=== PATIENT | female | born 1965 | race Caucasian/White ===

== ENCOUNTER 2016-07-10 22:19 | Emergency (ER) | payer MEDICAID ==
[~2016-07-10] VITALS: Ht 177.8 cm; Wt 56.0 kg
[~2016-07-10 22:19] MED LIST: AMIT1TAB79 PO; CELE40TA PO; CLON1 PO; DICY10CA12 PO; GEOD80CA PO; PROT40TA PO; ROBA750T PO
[2016-07-10 22:35] VITALS: BP 112/64; PULSE 67; RESP 18; TEMP 98.1; O2SAT 95
[2016-07-10] MEDS ORDERED: BUTA1CAP PO (22:45)
[2016-07-10] MEDS ORDERED: SODIUM CHLORIDE 0.9% FLUSH 10 ML FLUSH IVF PRN (22:45)
[2016-07-10] MEDS ORDERED: IBUP-232 PO (22:45)
[2016-07-10 23:03] LABS: AUTOMATED NEUTROPHIL # 2.9 TH/MM3 (1.8-7.7); BASOPHIL # 0.1 TH/MM3 (0-0.2); BASOPHIL % 1.1 % (0.0-2.0); EOSINOPHIL # 0.1 TH/MM3 (0-0.4); EOSINOPHIL % 1.2 % (0.0-4.0); HEMATOCRIT 34.1 % (35.0-46.0); HEMO FLAGS DIFF FINAL; LYMPHOCYTE # 2.6 TH/MM3 (1.0-4.8); MEAN CELL VOLUME 89.5 FL (80.0-100.0); MEAN CORPUSCULAR HEMOGLOBIN 30.7 PG (27.0-34.0); MEAN CORPUSCULAR HGB CONC 34.3 % (32.0-36.0); MONO % 11.7 % (0.0-8.0); PLATELET COUNT 249 TH/MM3 (150-450); RED BLOOD COUNT 3.81 MIL/MM3 (4.00-5.30); RED CELL DISTRIBUTION WIDTH 13.4 % (11.6-17.2); WHITE BLOOD COUNT 6.4 TH/MM3 (4.0-11.0)
[2016-07-10 23:37] LABS: ANION GAP 7 MEQ/L (5-15); AST (GOT) 42 U/L (15-37); BICARBONATE 24.8 MEQ/L (21.0-32.0); BLOOD UREA NITROGEN 18 MG/DL (7-18); CHLORIDE 107 MEQ/L (98-107); GLOMERULAR FILTRATION RATE 65 ML/MIN (>89); POTASSIUM 3.6 MEQ/L (3.5-5.1); SODIUM (NA) 139 MEQ/L (136-145)
[2016-07-10 23:42] LABS: ALKALINE PHOSPHATASE 75 U/L (45-117); ALT (GPT) 45 U/L (10-53); TOTAL BILIRUBIN ADULT 0.3 MG/DL (0.2-1.0)
[2016-07-10 23:45] LABS: CREATINE KINASE 96 U/L (26-192)
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
[2016-07-11 01:34] VITALS: BP 114/69; PULSE 73; RESP 14; O2SAT 97
--- NOTE | 2016-07-11 11:32 | EKG ---
Date Performed: 07/11/2016 Time Performed: 00:12:41 PTAGE: 51 years EKG: Sinus rhythm NORMAL ECG NO PREVIOUS TRACING DOCTOR: Kamlesh Briscoe Interpretating Date/Time 07/11/2016 11:30:25
== END 2016-07-11 02:49 | disposition home or self-care (01) ==
LOC: NEPC 22:19
DX: T42.3X5A Adverse effect of barbiturates, initial encounter (principal); R41.82 Altered mental status, unspecified; R11.0 Nausea; J44.9 Chronic obstructive pulmonary disease, unspecified; B19.20 Unspecified viral hepatitis C without hepatic coma; Z72.0 Tobacco use
CPT/HCPCS: 70450; 80053; 80307; 82140; 82550; 84484; 85025; 93005

== ENCOUNTER 2016-11-02 12:33 | Emergency (ER) | payer MEDICAID ==
[~2016-11-02] VITALS: Ht 160 cm; Wt 65.0 kg
[~2016-11-02 12:33] MED LIST changes: -AMIT1TAB79 PO; +BUTA1CAP PO; -CELE40TA PO; -CLON1 PO; -DICY10CA12 PO; -GEOD80CA PO; +IBUP-232 PO; -PROT40TA PO; -ROBA750T PO
[2016-11-02 12:36] VITALS: BP 144/70; PULSE 66; RESP 24; TEMP 98.4; O2SAT 97
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
[2016-11-02] MEDS ORDERED: IBUP800T23 PO (12:52)
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
[2016-11-02] MEDS ORDERED: GEOD80CA PO (13:15)
[2016-11-02] MEDS ORDERED: NAPR500T PO (13:15)
[2016-11-02] MEDS ORDERED: OMEP40CA2 PO (13:15)
[2016-11-02] MEDS ORDERED: TRAM50TA PO (13:35)
== END 2016-11-02 13:50 | disposition home or self-care (01) ==
LOC: NEPK 12:33
DX: S62.339A Displaced fracture of neck of unspecified metacarpal bone, initial encounter for closed fracture (principal); W22.8XXA Striking against or struck by other objects, initial encounter
CPT/HCPCS: 29125; 73130

== ENCOUNTER 2016-11-11 07:15 | Inpatient (IN) | payer MEDICAID ==
[~2016-11-11] VITALS: Ht 160 cm; Wt 49.9 kg
[~2016-11-11 07:15] MED LIST changes: -BUTA1CAP PO; +GEOD80CA PO; -IBUP-232 PO; +NAPR500T PO; +OMEP40CA2 PO; +TRAM50TA PO
[2016-11-11 07:21] VITALS: BP 142/81; PULSE 86; RESP 15; TEMP 98.2; O2SAT 100
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
[2016-11-11 07:43] VITALS: BP 135/72; PULSE 60; RESP 21; O2SAT 99
[2016-11-11 08:01] LABS: AUTOMATED NEUTROPHIL # 2.7 TH/MM3 (1.8-7.7); BASOPHIL # 0.1 TH/MM3 (0-0.2); BASOPHIL % 1.5 % (0.0-2.0); EOSINOPHIL # 0.2 TH/MM3 (0-0.4); EOSINOPHIL % 2.5 % (0.0-4.0); HEMATOCRIT 42.7 % (35.0-46.0); HEMO FLAGS DIFF FINAL; LYMPH % 43.9 % (9.0-44.0); LYMPHOCYTE # 2.7 TH/MM3 (1.0-4.8); MEAN CELL VOLUME 89.3 FL (80.0-100.0); MEAN CORPUSCULAR HEMOGLOBIN 30.9 PG (27.0-34.0); MEAN CORPUSCULAR HGB CONC 34.6 % (32.0-36.0); MONO % 8.1 % (0.0-8.0); PLATELET COUNT 258 TH/MM3 (150-450); RED BLOOD COUNT 4.78 MIL/MM3 (4.00-5.30); RED CELL DISTRIBUTION WIDTH 13.3 % (11.6-17.2); WHITE BLOOD COUNT 6.1 TH/MM3 (4.0-11.0)
[2016-11-11 08:11] LABS: ALT (GPT) 43 U/L (10-53); ANION GAP 6 MEQ/L (5-15); AST (GOT) 44 U/L (15-37); BICARBONATE 27.1 MEQ/L (21.0-32.0); BLOOD UREA NITROGEN 16 MG/DL (7-18); CHLORIDE 106 MEQ/L (98-107); GLOMERULAR FILTRATION RATE 56 ML/MIN (>89); SODIUM (NA) 139 MEQ/L (136-145)
[2016-11-11 08:21] LABS: ALKALINE PHOSPHATASE 83 U/L (45-117); TOTAL BILIRUBIN ADULT 0.5 MG/DL (0.2-1.0)
[2016-11-11 08:23] LABS: ALCOHOL LESS THAN 3 MG/DL (0-5)
[2016-11-11 13:24] VITALS: BP 155/78; PULSE 66; RESP 20; TEMP 98.5; O2SAT 97
[2016-11-11 17:34] VITALS: BP 127/86; PULSE 76; RESP 18; O2SAT 98
[2016-11-11 22:18] VITALS: BP 130/60; PULSE 57; RESP 18
[2016-11-12 07:03] VITALS: BP 134/72; PULSE 66; RESP 18; O2SAT 98
[2016-11-12] MEDS ORDERED: NAPROXEN 500 MG TAB PO ONE (08:00)
--- NOTE | 2016-11-12 08:43 | PD ---
Physical Exam Date Seen by Provider: Nov 12, 2016 Time Seen by Provider: 08:41 Narrative patient has a right wrist fracture and needs a splint. She was diagnosed with a fracture on Nov 02. She was given a splint then. Apparently now she no longer has the splint. For Full Details of H&P, please refer to previous providers note. Data Data Last Documented VS Vital Signs Date Time Temp Pulse Resp B/P Pulse Ox O2 Delivery O2 Flow Rate FiO2 11/12/16 07:03 66 18 134/72 98 11/11/16 22:18 Room Air 11/11/16 13:24 98.5 Orders Complete Blood Count With Diff (11/11/16 07:28) Comprehensive Metabolic Panel (11/11/16 07:28) Thyroid Stimulating Hormone (11/11/16 07:28) Psych Screen (11/11/16 07:28) Drug Screen, Random Urine (11/11/16 07:28) Alcohol (Ethanol) (11/11/16 07:28) Diet Regular Basic (11/11/16 Dinner) Diet Regular Basic (11/12/16 Breakfast) Naproxen (Naprosyn) (11/12/16 08:00) Splinting (11/12/16 ) Ziprasidone Hydrochloride (Geodon) (11/12/16 11:00) Admit Order (Ed Use Only) (11/12/16 ) Admit To Inpatient Psych (11/12/16 ) Code Status (11/12/16 10:53) Vital Signs (Adult) [id number] (11/12/16 10:53) Activity Oob Ad Briseida (11/12/16 10:53) Level Of Observation (Psych) (11/12/16 10:53) Aims-Abnormal Invol Move Scale ONCE (11/12/16 10:53) Magnesium Hydroxide Liq (Milk Of Magnesi (11/12/16 11:00) Al-Mag Hy-Si 40-40-4 Mg/Ml Liq (Mag-Al P (11/12/16 11:00) Basic Metabolic Panel (Bmp) (11/13/16 06:00) Lipid Profile (11/13/16 06:00) Hemoglobin (Hgb) A1c (11/13/16 06:00) Vitamin D, 25-Hydroxy (11/13/16 06:00) Electrocardiogram (11/13/16 ) Labs Laboratory Tests Test 11/11/16 11/11/16 07:45 10:00 White Blood Count 6.1 TH/MM3 Red Blood Count 4.78 MIL/MM3 Hemoglobin 14.8 GM/DL Hematocrit 42.7 % Mean Corpuscular Volume 89.3 FL Mean Corpuscular Hemoglobin 30.9 PG Mean Corpuscular Hemoglobin 34.6 % Concent Red Cell Distribution Width 13.3 % Platelet Count 258 TH/MM3 Mean Platelet Volume 7.4 FL Neutrophils (%) (Auto) 44.0 % Lymphocytes (%) (Auto) 43.9 % Monocytes (%) (Auto) 8.1 % Eosinophils (%) (Auto) 2.5 % Basophils (%) (Auto) 1.5 % Neutrophils # (Auto) 2.7 TH/MM3 Lymphocytes # (Auto) 2.7 TH/MM3 Monocytes # (Auto) 0.5 TH/MM3 Eosinophils # (Auto) 0.2 TH/MM3 Basophils # (Auto) 0.1 TH/MM3 CBC Comment DIFF FINAL Differential Comment Sodium Level 139 MEQ/L Potassium Level 4.0 MEQ/L Chloride Level 106 MEQ/L Carbon Dioxide Level 27.1 MEQ/L Anion Gap 6 MEQ/L Blood Urea Nitrogen 16 MG/DL Creatinine 1.03 MG/DL Estimat Glomerular Filtration 56 ML/MIN Rate Random Glucose 94 MG/DL Calcium Level 9.4 MG/DL Total Bilirubin 0.5 MG/DL Aspartate Amino Transf 44 U/L (AST/SGOT) Alanine Aminotransferase 43 U/L (ALT/SGPT) Alkaline Phosphatase 83 U/L Total Protein 8.0 GM/DL Albumin 4.1 GM/DL Thyroid Stimulating Hormone 1.260 uIU/ML 3rd Gen Ethyl Alcohol Level LESS THAN 3 MG/DL Urine Opiates Screen NEG Urine Barbiturates Screen NEG Urine Amphetamines Screen NEG Urine Benzodiazepines Screen NEG Urine Cocaine Screen POS Urine Cannabinoids Screen POS [facility] Medical Record Reviewed: Yes Supervised Visit with ALE: No Differential Diagnosis boxer's fracture right side Narrative Course boxer's fracture requested a splint from ortho techs Diagnosis Primary Impression: Schizoaffective disorder Qualified Code: F25.9 - Schizoaffective disorder, unspecified type Additional Impressions: Suicidal ideation Substance induced mood disorder Boxers fracture Qualified Code: S62.339S - Closed boxer's fracture, sequela Admitting Information Admitting Physician Requests: Admit Patient Instructions: General Instructions, Schizoaffective Disorder (ED), Suicide Prevention for Adults (ED) Departure Forms: Tests/Procedures Condition: Stable Radha Jeffrey Nov 12, 2016 08:43
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
[2016-11-12] MEDS ORDERED: MAGNESIUM HYDROXIDE SUSP 30 ML CUP PO PRN (11:00)
[2016-11-12] MEDS ORDERED: ZIPRASIDONE HCL 20 MG CAP PO ONE (11:00)
[2016-11-12] MEDS ORDERED: ALUMINUM/MAGNESIUM/SIMETH 30 ML CUP PO PRN (11:00)
[2016-11-12 11:01] VITALS: BP 113/54; PULSE 77; RESP 18; TEMP 96.7; O2SAT 98
[2016-11-12 11:44] VITALS: BP 122/56; PULSE 80; RESP 16; TEMP 98.7
[2016-11-12] MEDS ORDERED: LORazepam 2 MG/ML VIAL IM PRN ×2 (16:15)
[2016-11-12] MEDS ORDERED: LORazepam 0.5 MG TAB PO PRN (16:15)
[2016-11-12 17:00] VITALS: BP 111/55; PULSE 91; RESP 18; TEMP 98.4; O2SAT 99
[2016-11-12] MEDS: IBUPROFEN 400 MG TAB PO PRN (20:54)
[2016-11-12] MEDS: ZIPRASIDONE HCL 40 MG CAP PO SCH (20:54)
[2016-11-13 06:21] LABS: ANION GAP 5 MEQ/L (5-15); BICARBONATE 28.1 MEQ/L (21.0-32.0); BLOOD UREA NITROGEN 18 MG/DL (7-18); CHLORIDE 104 MEQ/L (98-107); GLOMERULAR FILTRATION RATE 58 ML/MIN (>89); POTASSIUM 4.3 MEQ/L (3.5-5.1); SODIUM (NA) 137 MEQ/L (136-145)
[2016-11-13 06:25] LABS: HDL CHOLESTEROL 65.3 MG/DL (40.0-60.0); LDL CHOLESTEROL 71 MG/DL (0-99)
[2016-11-13 07:15] VITALS: BP 102/58; PULSE 61; RESP 16; O2SAT 96
[2016-11-13] MEDS: REMOVE OLD PATCH T-DERMAL SCH (09:00)
[2016-11-13] MEDS: NICOTINE 21 MG/24 HR PATCH T-DERMAL SCH (09:00)
[2016-11-13] MEDS: IBUPROFEN 400 MG TAB PO PRN ×2 (09:15→17:55)
--- NOTE | 2016-11-13 16:00 | EKG ---
Date Performed: 11/13/2016 Time Performed: 10:51:11 PTAGE: 51 years EKG: SINUS BRADYCARDIA Compared to previous tracing, HR is slower, otherwise no significant berger ge BORDERLINE ECG PREVIOUS TRACING : 07/11/2016 00.12 DOCTOR: Josef Cueto Interpretating Date/Time 11/13/2016 15:59:50
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
[2016-11-13 18:37] VITALS: BP 119/83; PULSE 86; RESP 17; TEMP 98.7; O2SAT 99
[2016-11-13] MEDS: ZIPRASIDONE HCL 40 MG CAP PO SCH (20:39)
[2016-11-13] MEDS ORDERED: NAPROXEN 375 MG TAB PO PRN (20:45)
[2016-11-13] MEDS ORDERED: PANTOPRAZOLE SOD 40 MG DELAYED RELEASE TAB PO SCH (21:00)
[2016-11-13] MEDS: LORazepam 1 MG TAB PO PRN (21:17)
[2016-11-14] MEDS: NICOTINE 21 MG/24 HR PATCH T-DERMAL SCH (08:42)
[2016-11-14] MEDS: REMOVE OLD PATCH T-DERMAL SCH (08:43)
[2016-11-14] MEDS ORDERED: CITALOPRAM HYDROBROMIDE 20 MG TAB PO SCH (09:00)
[2016-11-14] MEDS: LORazepam 1 MG TAB PO PRN (13:32)
[2016-11-14] MEDS: IBUPROFEN 400 MG TAB PO PRN (13:32)
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
[2016-11-14 15:45] LABS: HEMOGLOBIN A1a 0.9 %; HEMOGLOBIN A1b 0.8 %; HEMOGLOBIN Ao 84.4 %; HEMOGLOBIN F 1.4 %; HEMOGLOBIN LA1C 1.9 %; HEMOGLOBIN P3 3.9 %
== END 2016-11-14 16:20 | disposition home or self-care (01) | DRG 885 ==
LOC: NEPE 07:15 → NEDA 11-12 10:58 → H260 11-12 11:15
PROVIDERS: ADMIT Psychiatry & Neurology Psychiatry; ATTEND Psychiatry & Neurology Psychiatry
DX: F25.9 Schizoaffective disorder, unspecified (principal); R45.851 Suicidal ideations; Z91.128 Patient's intentional underdosing of medication regimen for other reason; T43.596A Underdosing of other antipsychotics and neuroleptics, initial encounter; F19.14 Other psychoactive substance abuse with psychoactive substance-induced mood disorder; J44.9 Chronic obstructive pulmonary disease, unspecified; S62.339A Displaced fracture of neck of unspecified metacarpal bone, initial encounter for closed fracture; B18.2 Chronic viral hepatitis C; M25.552 Pain in left hip; F12.10 Cannabis abuse, uncomplicated; W22.8XXA Striking against or struck by other objects, initial encounter; Z72.0 Tobacco use; Z91.410 Personal history of adult physical and sexual abuse; Z91.5 Personal history of self-harm
CPT/HCPCS: 80048; 80053; 80061; 80307; 82306; 83036; 84443; 85025; 93005

== ENCOUNTER 2017-05-08 15:22 | Inpatient (IN) | payer MEDICAID, OTHER ==
[~2017-05-08] VITALS: Ht 160 cm; Wt 53.2 kg
[~2017-05-08 15:22] MED LIST changes: -NAPR500T PO; +NAPR500T2 PO
[2017-05-08 15:30] VITALS: BP 114/66; PULSE 99; RESP 16; TEMP 99.1; O2SAT 99
[2017-05-08] MEDS ORDERED: IBUPROFEN 600 MG TAB PO ONE (17:30)
[2017-05-08 17:45] LABS: AUTOMATED NEUTROPHIL # 2.8 TH/MM3 (1.8-7.7); BASOPHIL # 0.1 TH/MM3 (0-0.2); BASOPHIL % 1.3 % (0.0-2.0); EOSINOPHIL # 0.1 TH/MM3 (0-0.4); EOSINOPHIL % 1.7 % (0.0-4.0); HEMATOCRIT 40.9 % (35.0-46.0); HEMOGLOBIN 14.1 GM/DL (11.6-15.3); LYMPH % 47.2 % (9.0-44.0); LYMPHOCYTE # 3.3 TH/MM3 (1.0-4.8); MEAN CORPUSCULAR HEMOGLOBIN 30.9 PG (27.0-34.0); MEAN CORPUSCULAR HGB CONC 34.4 % (32.0-36.0); MONO % 8.9 % (0.0-8.0); MONOCYTE # 0.6 TH/MM3 (0-0.9); NEUT % 40.9 % (16.0-70.0); PLATELET COUNT 315 TH/MM3 (150-450); RED BLOOD COUNT 4.54 MIL/MM3 (4.00-5.30); RED CELL DISTRIBUTION WIDTH 13.2 % (11.6-17.2); WHITE BLOOD COUNT 6.9 TH/MM3 (4.0-11.0)
[2017-05-08 18:03] LABS: BACTERIA, URINE FEW /hpf; BILIRUBIN, URINE NEG (NEG); BLOOD, URINE NEG (NEG); GLUCOSE,URINE NEG (NEG); KETONE, URINE NEG (NEG); NITRITE,URINE NEG (NEG); PH, URINE 5.5 (5.0-8.5); SQUAMOUS EPITHELIAL CELL URINE 1 /hpf (0-5); URINE COLOR YELLOW (YELLW/STRAW); URINE LEUKOCYTE ESTERASE MOD (NEG)
[2017-05-08 18:05] LABS: ALT (GPT) 65 U/L (10-53)
[2017-05-08 18:06] LABS: ALBUMIN 3.6 GM/DL (3.4-5.0); AST (GOT) 64 U/L (15-37); BICARBONATE 26.9 MEQ/L (21.0-32.0); BLOOD UREA NITROGEN 19 MG/DL (7-18); CALCIUM 8.7 MG/DL (8.5-10.1); CHLORIDE 106 MEQ/L (98-107); CREATININE 1.19 MG/DL (0.50-1.00); GLOMERULAR FILTRATION RATE 47 ML/MIN (>89); GLUCOSE,RANDOM 90 MG/DL (74-106); SODIUM (NA) 140 MEQ/L (136-145)
[2017-05-08 18:15] LABS: ALKALINE PHOSPHATASE 81 U/L (45-117); TOTAL BILIRUBIN ADULT 0.3 MG/DL (0.2-1.0)
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
[2017-05-08] MEDS ORDERED: LYRI50CA PO (19:49)
[2017-05-08] MEDS ORDERED: NAPR250T4 PO (19:50)
[2017-05-09 01:52] VITALS: BP 132/82; PULSE 86; RESP 17; O2SAT 98
[2017-05-09] MEDS ORDERED: diphenhydrAMINE HCL 50 MG CAP PO ONE (02:00)
[2017-05-09 06:32] VITALS: BP 112/66; PULSE 81; RESP 16; O2SAT 100
[2017-05-09] MEDS ORDERED: NAPROXEN 500 MG TAB PO ONE (11:30)
[2017-05-09] MEDS ORDERED: PREGABALIN 25 MG CAP PO SCH ×2 (11:30→21:00)
[2017-05-09 14:47] VITALS: BP 120/63; PULSE 72; RESP 18; TEMP 97.8; O2SAT 95
[2017-05-09] MEDS ORDERED: LORazepam 2 MG TAB PO PRN (17:45)
[2017-05-09] MEDS ORDERED: FLUMAZENIL 0.5 MG/5 ML VIAL IV PUSH PRN (17:45)
[2017-05-09] MEDS ORDERED: LORazepam 2 MG/ML VIAL IM PRN ×4 (17:45)
[2017-05-09] MEDS ORDERED: LORazepam 1 MG TAB PO PRN (17:45)
[2017-05-09 18:05] VITALS: BP 124/59; PULSE 79; RESP 18; TEMP 98.1; O2SAT 100
[2017-05-09] MEDS ORDERED: cloNIDine HCL 0.1 MG TAB PO PRN (18:15)
[2017-05-09] MEDS ORDERED: NICOTINE 14 MG/24 HR PATCH T-DERMAL SCH (18:15)
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
[2017-05-09] MEDS ORDERED: diphenhydrAMINE HCL 50 MG/ML VIAL IM PRN (19:30)
[2017-05-09] MEDS ORDERED: ALUMINUM/MAGNESIUM/SIMETH 30 ML CUP PO PRN (19:30)
[2017-05-09] MEDS ORDERED: hydrOXYzine HCL 50 MG TAB PO PRN (19:30)
[2017-05-09] MEDS ORDERED: MAGNESIUM HYDROXIDE SUSP 30 ML CUP PO PRN (19:30)
[2017-05-09] MEDS ORDERED: diphenhydrAMINE HCL 50 MG CAP PO PRN (19:30)
[2017-05-09] MEDS: REMOVE OLD NICOTINE PATCH T-DERMAL SCH (21:00)
[2017-05-09] MEDS ORDERED: ZIPRASIDONE HCL 80 MG CAP PO SCH (21:00)
[2017-05-09] MEDS ORDERED: diphenhydrAMINE HCL 50 MG/ML VIAL - HS PRN IM (21:00)
[2017-05-09] MEDS: NAPROXEN 250 MG TAB PO SCH (21:00)
[2017-05-09] MEDS: PREGABALIN 25 MG CAP PO SCH (21:00)
[2017-05-09] MEDS ORDERED: NAPROXEN 250 MG TAB PO SCH (21:00)
[2017-05-09] MEDS ORDERED: diphenhydrAMINE HCL 50 MG CAP - HS PRN PO (21:00)
[2017-05-09] MEDS: FAMOTIDINE 20 MG TAB PO SCH (21:21)
[2017-05-10 06:08] VITALS: BP 99/58; PULSE 89; RESP 16; TEMP 96.5; O2SAT 99
[2017-05-10 06:09] VITALS: BP 144/83; PULSE 135; RESP 18; TEMP 97.9; O2SAT 99
[2017-05-10 08:22] LABS: ALBUMIN 3.1 GM/DL (3.4-5.0); AST (GOT) 61 U/L (15-37); BICARBONATE 27.9 MEQ/L (21.0-32.0); BLOOD UREA NITROGEN 20 MG/DL (7-18); CALCIUM 8.6 MG/DL (8.5-10.1); CHLORIDE 105 MEQ/L (98-107); CREATININE 0.84 MG/DL (0.50-1.00); GLOMERULAR FILTRATION RATE 71 ML/MIN (>89); GLUCOSE,RANDOM 104 MG/DL (74-106); SODIUM (NA) 138 MEQ/L (136-145)
[2017-05-10 08:23] LABS: ALT (GPT) 64 U/L (10-53); CHOLESTEROL 137 MG/DL (120-200); DIRECT BILIRUBIN ADULT 0.1 MG/DL (0.0-0.2); TRIGLYCERIDES 89 MG/DL (42-150)
[2017-05-10 08:27] LABS: ALKALINE PHOSPHATASE 80 U/L (45-117); CHOLESTEROL/ HDL RATIO 2.48 RATIO; HDL CHOLESTEROL 55.2 MG/DL (40.0-60.0); INDIRECT BILIRUBIN 0.3 MG/DL (0.0-0.8); LDL CHOLESTEROL 64 MG/DL (0-99); TOTAL BILIRUBIN ADULT 0.4 MG/DL (0.2-1.0); TOTAL PROTEIN 6.4 GM/DL (6.4-8.2)
[2017-05-10] MEDS ORDERED: REMOVE OLD PATCH T-DERMAL SCH (09:00)
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
--- NOTE | 2017-05-10 09:43 | HHI.HP ---
History & Physical H&P Date of admission: 05/09/17 Admitting diagnoses: 1. Schizoaffective disorder, depressive type, F 25.1 2. Polysubstance abuse, F19.10 Legal status: The patient is capacitated to consent for admission and for medication/treatment. Voluntary status. History of present illness: Ms. Villatoro is a 51-year-old female with a reported history of psychotic illness who presented to the emergency department under a Palmer act initiated by her outpatient provider Cholo Kim alleging that the patient has been experiencing command auditory hallucinations to kill herself. Reviewing the electronic medical record, I note that the patient was admitted briefly to the inpatient unit in October of last year. Patient seen and examined with nurse and nurse practitioner. Chart reviewed. Case discussed with nursing staff. On my examination today, the patient reports that she has been falling into a deep depression over the last several weeks. She says that she stopped caring about her self-care and therefore stopped her psychotropic medications about 3 weeks ago. In the setting of this medication nonadherence she has been experiencing audiovisual hallucinations including shadows and "mumbling." She does not presently describe any command auditory hallucinations. She continues to endorse low mood and says "I have given up on God. I don't care anymore." She endorses hopeless feelings. She endorses suicidal ideation with plan to jump in front of a train or perhaps to overdose. She does contract for safety on the inpatient unit. Besides the hallucinations, the patient also describes some ideas of reference and says that she believes that a radio show called Misa is talking about her. No hypomanic or manic symptoms presently. The remainder of the psychiatric ROS is negative. The patient complains of some left hip pain but otherwise has no physical complaints at this time. Past psychiatric history: The patient reports a history of schizophrenia. She follows with nurse practitioner Cholo at [facility]. Her most recent psychiatric admission was here at [facility]. She denies a history of suicide attempts. Family history: The patient denies any family history of serious mental illness or suicide. Chemical dependency history: The patient admits to recent use of K2, crack cocaine and cannabis. Social history: The patient reports that she recently left her apartment where she had been staying and has no intention of returning. She says that the apartment was full of bugs. She is presently therefore homeless. Her 2 years ago. She has 2 sons. She is high school educated and worked until the age of 28 for [employer]. 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 She denies any history. Denies any legal history. She is a Nondenominational. She denies any access to guns or firearms. Past medical history: The patient reports a history of seizure disorder and says that she had a breakthrough seizure a few nights ago. She also has a history of hepatitis C. Medications (Med list obtained from patient's [facility] by RN): 1. Vimpat 200mg PO BID 2. Lyrica 50mg BID 3. Ativan 0.5mg q6h p.r.n. anxiety 4. Naproxen 500mg BID 5. Celexa 40mg daily 6. Geodon 80mg qHS 7. Prilosec 20mg qAM 8. Albuterol inhaler Allergies: Tylenol and hydrocodone Review of systems: Except as noted in history of present illness, this is negative. Physical examination: Vital signs: Vital Signs Label Value Date Time Patient Temperature 96.5 degrees F L 05/10/17 0608 Pulse 89 05/10/17 0608 Respiratory Rate 16 bpm 05/10/17 0608 Blood Pressure Assessment 99/58 (72) 05/10/17 0608 Location L Arm Source Automatic Cuff Position Sitting Bedside Pulse Oximetry 99 % room air 05/10/17 0608 General: Physical examination completed by ED provider. On my examination today , the patient appears to be in no acute physical distress. No motor abnormalities noted except that the patient is somewhat hyperkinetic. No signs of intoxication or withdrawal noted. Steady gait and station. Laboratories: Item Value Date Time White Blood Count 6.9 TH/MM3 05/08/17 1650 Hemoglobin 14.1 GM/DL 05/08/17 1650 Platelet Count 315 TH/MM3 05/08/17 1650 Sodium Level 138 MEQ/L 05/10/17 0559 Potassium Level 4.0 MEQ/L 05/10/17 0559 Chloride Level 105 MEQ/L 05/10/17 0559 Carbon Dioxide Level 27.9 MEQ/L 05/10/17 0559 Blood Urea Nitrogen 20 MG/DL H 05/10/17 0559 Creatinine 0.84 MG/DL 05/10/17 0559 Estimat Glomerular Filtration Rate 71 ML/MIN L 05/10/17 0559 Random Glucose 104 MG/DL 05/10/17 0559 Aspartate Amino Transf (AST/SGOT) 61 U/L H 05/10/17 0559 Alanine Aminotransferase (ALT/SGPT) 64 U/L H 05/10/17 0559 Alkaline Phosphatase 80 U/L 05/10/17 0559 Human Chorionic Gonadotropin, Quant 4 MIU/ML 05/08/17 1650 Thyroid Stimulating Hormone 3rd Gen 0.534 uIU/ML 05/08/17 1650 Urine Cocaine Screen POS H 05/08/17 1731 Urine Cannabinoids Screen POS H 05/08/17 1731 Ethyl Alcohol Level LESS THAN 3 MG/DL 05/08/17 1650 Transaminitis is stable. Urine toxicology results reviewed. Imaging: Last Impressions Hip and Pelvis X-Ray 05/10/17 0000 Signed Impressions: Service Date/Time: Wednesday, May 10, 2017 08:44 - CONCLUSION: Negative Teto Parry MD FACR Mental status examination: Patient is in hospital attire. She is fairly disheveled but maintaining basic hygiene. She is awake and alert and oriented 4. Motor exam as above. Speech is within normal limits for rate, tone and volume. Language and fund of knowledge average. Focus and concentration somewhat scattered. Memory grossly intact on clinical exam. Mood is depressed and affect is restricted. Thought process linear. No loosening of associations. Possibly some ideas of reference but no other delusional material. Reports audiovisual hallucinations as noted above. No command auditory hallucinations presently. Endorses suicidal ideation with plan to run in front of a train or to overdose. No suicidal intent, and the patient denies any urge to hurt herself on the inpatient psychiatric unit. No homicidal ideation, intent or plan. Insight and judgment are fair. Assessment and plan: 51-year-old female with psychiatric history as detailed above who presents under a Palmer act. On my examination today, the patient reports worsening depression leading to medication nonadherence with subsequent exacerbation of psychotic symptoms. The patient continues to endorse low mood and suicidal ideation. Patient reports that when she is taking her psychotropic medications Geodon and Celexa regularly, she does well. I have suggested to the patient that this may not be the case as she became depressed while on these medications. I have also suggested that she might benefit from an antipsychotic with been available long-acting injectable if medication adherence as an issue. After a discussion of her pharmacotherapeutic options, the patient wishes to resume her Geodon and Celexa. I will plan to admit the patient to the inpatient psychiatric unit for safety, observation and stabilization. --Admit inpatient --Voluntary status --Hospitalist already consulted. Appreciate recommendations. --Continue Vimpat for seizure and consult neurology given breakthrough seizure. Seizure precautions. --Resume Geodon 80 mg, and I will dose this with dinner as this medication needs to be given with food. --Resume Celexa 40 mg daily. --Resume other general medical medications as noted above. --Check EKG for QTc. --Ativan as needed for anxiety, Benadryl as needed for EPS/sleep. --Vitals every shift. --Counselor to see and obtain collateral. --Disposition planning. Estimated length of stay: 5-7 days. Davonte Knutson MD May 10, 2017 09:43
[2017-05-10] MEDS: NAPROXEN 250 MG TAB PO SCH ×2 (09:56→21:24)
[2017-05-10] MEDS: FAMOTIDINE 20 MG TAB PO SCH ×2 (09:57→21:24)
[2017-05-10] MEDS: NICOTINE 21 MG/24 HR PATCH T-DERMAL SCH (09:57)
[2017-05-10] MEDS: PREGABALIN 25 MG CAP PO SCH ×2 (09:57→21:24)
[2017-05-10] MEDS ORDERED: ALBUTEROL SULFATE 90 MCG/ACT HFA 8 GM INHALER INH PRN (12:00)
[2017-05-10] MEDS: CITALOPRAM HYDROBROMIDE 40 MG TAB PO SCH (13:07)
[2017-05-10] MEDS: LACOSAMIDE 100 MG TAB PO SCH ×2 (14:10→21:00)
[2017-05-10 17:28] VITALS: BP 117/70; PULSE 77; RESP 16; TEMP 97.8; O2SAT 99
[2017-05-10] MEDS: LORazepam 0.5 MG TAB PO PRN (17:43)
[2017-05-10] MEDS ORDERED: ZIPRASIDONE HCL 80 MG CAP PO SCH (18:00)
[2017-05-10] MEDS: REMOVE OLD NICOTINE PATCH T-DERMAL SCH (21:00)
--- NOTE | 2017-05-10 21:07 | MB ---
cc: MINA MEYER M.D. DATE OF CONSULTATION: 05/10/2017 REASON FOR CONSULTATION: HISTORY OF PRESENT ILLNESS: The patient is a 51-year-old woman with history of schizophrenia and seizure disorder. She was see in neurological evaluation because of seizures. She admits that she also has left hip pain. She follows with a neurologist from [place]. She describes that she had a seizure a couple of nights before she came here. She was by herself as usual and describes that she had some trembling and then had some apparent tonic-clonic activity and loss of consciousness. It is difficult to gather more information, though she is oriented. She takes Vimpat 200 mg twice a day according to the records and she knew that she gets her medication through [facility]. She takes Lyrica 50 mg twice a day for the left hip pain and she is followed by the neurologist in [place] for these two issue. She was having hallucinations and she also described that she is seeing shades on her side. She admits that she has had bad flashbacks. PHYSICAL EXAMINATION: The exam otherwise shows the patient to be reasonably alert, speech is somewhat slurred, but minimal, she is oriented, knows the date, provides the information discussed above which seems to be consistent with the information by the other records in relation to this admission. She is in no distress. Ocular movements and visual pollard were full. She is ambulating with mild nonspecific gait disorder and a bit slow overall. I see no trembling and no rigidity. The reflexes were 1+ including the ankles and the plantar responses were flexor. ASSESSMENT Seizure disorder. Historically the seizures seemed to have been somewhat poorly controlled though difficult to gather more detailed information. She is taking a relatively large dose of Vimpat and I agree with continuing this medication and she follows with a neurologist out of [place]. Monitor her current situation as she seems to be stable neurologic-an, though she admits to seizure two days before coming to the hospital. History of left hip pain, taking Lyrica for this. History of polysubstance abuse and schizophrenia. She was admitted under the [place] Act. The hip x-ray is negative. CBC is essentially normal. Toxicology on 05/08 was positive for cocaine and cannabinoids. Chemistry from today with moderate elevation of AST and ALT, sodium, potassium normal. Calcium normal. Glucose normal, BUN 20, creatinine 0.84. I will be available if there is any other neurologic symptom recurrence. Once stabilized from a psychiatric standpoint, she is to follow with her neurologist in [place]. Thank you for asking us to assist in her care. Mina Meyer MD [facility] /6:34 PM /8:56 PM
[2017-05-11 05:55] VITALS: BP 105/58; PULSE 71; RESP 16; TEMP 97.8; O2SAT 97
[2017-05-11] MEDS ORDERED: PANTOPRAZOLE SOD 40 MG DELAYED RELEASE TAB PO SCH (09:00)
[2017-05-11] MEDS: FAMOTIDINE 20 MG TAB PO SCH ×2 (09:19→20:21)
[2017-05-11] MEDS: NAPROXEN 250 MG TAB PO SCH ×2 (09:19→20:21)
[2017-05-11] MEDS: LACOSAMIDE 100 MG TAB PO SCH ×2 (09:19→20:21)
[2017-05-11] MEDS: CITALOPRAM HYDROBROMIDE 40 MG TAB PO SCH (09:20)
[2017-05-11] MEDS: PREGABALIN 25 MG CAP PO SCH ×2 (09:20→20:22)
[2017-05-11] MEDS: NICOTINE 21 MG/24 HR PATCH T-DERMAL SCH (09:23)
--- NOTE | 2017-05-11 12:28 | HHI.PYPN ---
Subjective Remarks Patient seen and examined with nurse. Chart reviewed. Case discussed with nursing staff. No behavioral issues overnight. On my examination today, patient somewhat medication seeking for Ativan. Denies any SI or HI. Complains of ongoing auditory hallucinations of "whispering." No side effects from medications but does complain of feeling somewhat dizzy at times. I have counseled patient regarding safe standing and we'll check orthostatics. No other physical complaints. Patient would like to titrate Geodon to target residual psychotic symptoms, but I have cautioned her that this may exacerbate her dizziness. Nonetheless, she wishes to proceed with the dose titration. Review of Systems Except as stated in HPI: all other systems reviewed are Neg Mental Status Examination Appearance: Disheveled Consciousness: Alert Orientation: x4 Motor Activity: Normal gait, Other (no motor abnormalities noted. No ictal activity noted.) Speech: Unremarkable Language: Adequate Fund of Knowledge: Adequate Attention and Concentration: Adequate Memory: Unremarkable Mood: Other (mildly dysphoric) Affect: Blunt Thought Process & Associations: Intact Thought Content: Appropriate Hallucination Type: Auditory (indistinct whispering.) Delusion Type: None Suicidal Ideation: No Suicidal Plan: No Suicidal Intention: No Homicidal Ideation: No Homicidal Plan: No Homicidal Intention: No Insight: Fair Judgment: Impulsive Results Labs Labs reviewed. EKG NSR, QTc not prolonged. Vitals/IOs Vital Signs Date Time Temp Pulse Resp B/P (MAP) Pulse Ox O2 Delivery O2 Flow Rate FiO2 05/11/17 05:55 97.8 71 16 105/58 (74) 97 05/09/17 14:47 Room Air Assessment & Plan Problem List: (1) Schizoaffective disorder ICD Codes: F25.9 - Schizoaffective disorder, unspecified Status: Acute (2) Polysubstance abuse ICD Codes: F19.10 - Other psychoactive substance abuse, uncomplicated Assessment & Plan Titrate Geodon to 60 mg twice daily with meals. Continue Celexa as ordered. Neurology input noted and appreciated. Check orthostatics and institute fall precautions. Continue to monitor on the inpatient unit. Continue other medications and care as ordered. Justification for Cont. Inpt. Med changes. Risk for decompensation in less restrictive setting. Discharge Planning Pending psychiatric stabilization. Request HC Surrog/Guard Advoc?: No Problem Qualifiers (1) Schizoaffective disorder: Qualified Codes: F25.1 - Schizoaffective disorder, depressive type Davonte Knutson MD May 11, 2017 12:28
[2017-05-11] MEDS: LORazepam 0.5 MG TAB PO PRN (13:30)
--- NOTE | 2017-05-11 14:43 | EKG ---
Date Performed: 05/10/2017 Time Performed: 16:13:30 PTAGE: 51 years EKG: Sinus rhythm NORMAL ECG PREVIOUS TRACING : 11/13/2016 10.51 Since the prior tracing, there has been no significant berger DOCTOR: Roddy Saunders Interpretating Date/Time 05/11/2017 14:36:36
[2017-05-11] MEDS ORDERED: ZIPRASIDONE HCL 80 MG CAP PO ONE (14:45)
[2017-05-11] MEDS ORDERED: ZIPRASIDONE HCL 60 MG CAP PO SCH (14:45)
--- NOTE | 2017-05-11 16:40 | HHI.PR ---
Subjective Remarks Follow-up visit bipolar, COPD, hepatitis C, left hip pain. Patient seen and examined today. Reports she is doing better. States she continues to have left hip pain and has been limping when she is walking. States the "Limp" has been there for several months with the hip pain. Discussed with patient results of the x-ray. She will need to follow-up with orthopedic in an outpatient setting to continue to monitor. She is asking if she can have a cane when she gets out of the facility. Discussed with patient we'll recommend physical therapy to see her and evaluate her needs. Otherwise, denies SOB/ dyspnea. Denies chest pain, palpitations, headaches, dizziness. Denies fevers, chills, n/v/d. Denies dysuria. Objective Vitals Vital Signs Date Time Temp Pulse Resp B/P (MAP) Pulse Ox O2 Delivery O2 Flow Rate FiO2 05/11/17 05:55 97.8 71 16 105/58 (74) 97 05/10/17 17:28 97.8 77 16 117/70 (86) 99 Result Diagram: 05/08/17 1650 05/10/17 0559 Imaging Last Impressions Hip and Pelvis X-Ray 05/10/17 0000 Signed Impressions: Service Date/Time: Wednesday, May 10, 2017 08:44 - CONCLUSION: Negative Teto Parry MD FACR Objective Remarks GENERAL: This is a well-nourished, well-developed patient, in no apparent distress. SKIN: Warm and dry HEENT: Normocephalic. Pupils equal round and reactive. Nose without bleeding. Airway patent. NECK: Trachea midline. No JVD. Supple. CARDIOVASCULAR: Regular rate and rhythm without murmurs, gallops, or rubs. RESPIRATORY: Clear to auscultation. Breath sounds equal bilaterally. No wheezes , rales, or rhonchi. GASTROINTESTINAL: Abdomen soft, non-tender, nondistended. Bowel Sounds normoactive x4. MUSCULOSKELETAL: Extremities without clubbing, cyanosis, or edema. Painful R OM left hip area NEUROLOGICAL: Awake and alert. Oriented to time, place, person. No focal neuro deficit. Moves all extremities. Normal speech. A/P Problem List: (1) cocaine abuse (2) Schizoaffective disorder ICD Code: F25.9 - Schizoaffective disorder, unspecified Status: Acute (3) Substance induced mood disorder ICD Code: F19.94 - Other psychoactive substance use, unspecified with psychoactive substance-induced mood disorder Status: Acute (4) Marijuana abuse ICD Code: F12.10 - Cannabis abuse, uncomplicated Assessment and Plan Patient is a 51-year-old female with primary medical history of bipolar, COPD, hepatitis C who came into the hospital under [place] act by the police. Consulted for chronic pain management and abnormal labs. BiPolar disorder, schizoaffective disorder, anxiety, depression - Managed by psychiatry team Chronic pain Left hip pain with gait disturbance. - Left hip x-ray Examination of the left hip was performed with AP Pelvis. The primary and secondary trabecular pattern of the femoral neck is intact. The hip joint is of normal width without significant sclerosis or bony hypertrophy. The acetabulum is grossly intact. - Naprosyn for now to 250 mg twice a day. Monitor kidney indices, hold if worsening. - PT eval and treat. We will send home with cane if needed. Acute kidney injury - Possibly drug-related and dehydration. Patient states that she found herself and towards not been eating and drinking. - Encourage by mouth fluid intake. - Repeat labs creatinine has improved 1.119 --> 0.84. Continue to encourage by mouth fluid intake. History of seizure History of CVA - Seizure precaution - This might be secondary to substance abuse as patient states that she had seizure with use of K2 spice, never had a seizure after not using it Substance abuse - Counseled. Discuss with patient extensively use of cocaine and K2 spices affecting her neurologically and could worsen her symptoms. - Nicotine patch Hepatitis C - Needs to follow-up outpatient either infectious disease or GI for treatment. However with patient's polysubstance abuse she needs to abstain to be able to start treatment. Nasal congestion, postnasal drip - Discuss with patient that this is most likely due to cocaine use and stopping cocaine usually causes nasal congestion. - Start Zyrtec daily at bedtime, Flonase daily. DVT prop early ambulation Stable from Hospitalist standpoint. We will sign off. Reconsult as needed. Problem Qualifiers (1) Schizoaffective disorder: Qualified Codes: F25.1 - Schizoaffective disorder, depressive type Quintin Jessica May 11, 2017 16:40
[2017-05-11] MEDS ORDERED: CANE/ALUMINUM/A1 MIS (16:43)
[2017-05-11 17:16] VITALS: BP 131/56; PULSE 82; RESP 16; TEMP 98.8; O2SAT 99
[2017-05-11] MEDS: LIDOCAINE HCL 5% PATCH T-DERMAL SCH (17:37)
[2017-05-11] MEDS: CETIRIZINE HCL 10 MG TAB PO SCH (20:21)
[2017-05-11] MEDS: REMOVE OLD NICOTINE PATCH T-DERMAL SCH (20:22)
[2017-05-12 06:03] VITALS: BP 102/52; PULSE 78; RESP 18; TEMP 97.6; O2SAT 95
[2017-05-12] MEDS ORDERED: ZIPRASIDONE HCL 60 MG CAP PO SCH (09:00)
[2017-05-12] MEDS: NAPROXEN 250 MG TAB PO SCH ×2 (10:16→21:55)
[2017-05-12] MEDS: FAMOTIDINE 20 MG TAB PO SCH ×2 (10:16→21:54)
[2017-05-12] MEDS: PREGABALIN 25 MG CAP PO SCH ×2 (10:16→21:55)
[2017-05-12] MEDS: CITALOPRAM HYDROBROMIDE 40 MG TAB PO SCH (10:16)
[2017-05-12] MEDS: FLUTICASONE PROPIONATE 50 MCG/ACT 16 GM NASAL SPRAY EACH NARE SCH (10:17)
[2017-05-12] MEDS: LACOSAMIDE 100 MG TAB PO SCH ×2 (10:17→21:54)
[2017-05-12] MEDS: NICOTINE 21 MG/24 HR PATCH T-DERMAL SCH (10:18)
[2017-05-12] MEDS: LIDOCAINE HCL 5% PATCH T-DERMAL SCH (10:19)
--- NOTE | 2017-05-12 12:20 | HHI.PYPN ---
Subjective Remarks Patient seen and examined with nurse. Chart reviewed. Case discussed with nursing staff. Case discussed in treatment team. On my examination today, the patient denies auditory hallucinations but reports experiencing visual phenomena of "stripes of light." Complains of anxiety and is requesting additional benzodiazepine, although I do note that she is not using her Ativan p.r.n. maximally. Denies SI or HI. No side effects from medications. No physical complaints. Review of Systems Except as stated in HPI: all other systems reviewed are Neg Mental Status Examination Appearance: Disheveled Consciousness: Alert Orientation: x4 Motor Activity: Normal gait, Other (no abnormal motor movements noted, no seizure activity noted.) Speech: Unremarkable Language: Adequate Fund of Knowledge: Adequate Attention and Concentration: Adequate Memory: Unremarkable Mood: Other (remains mildly dysphoric) Affect: Blunt Thought Process & Associations: Intact Thought Content: Appropriate Hallucination Type: Visual Delusion Type: None Suicidal Ideation: No Suicidal Plan: No Suicidal Intention: No Homicidal Ideation: No Homicidal Plan: No Homicidal Intention: No Insight: Fair Judgment: Impulsive Results Labs Labs reviewed. Vitals/IOs Vital Signs Date Time Temp Pulse Resp B/P (MAP) Pulse Ox O2 Delivery O2 Flow Rate FiO2 05/12/17 06:03 97.6 78 18 102/52 (69) 95 05/09/17 14:47 Room Air Intake and Output 05/12/17 05/12/17 05/13/17 08:00 16:00 00:00 Intake Total 240 ml 240 ml Balance 240 ml 240 ml Assessment & Plan Problem List: (1) Schizoaffective disorder ICD Codes: F25.9 - Schizoaffective disorder, unspecified Status: Acute (2) Polysubstance abuse ICD Codes: F19.10 - Other psychoactive substance abuse, uncomplicated Assessment & Plan Nurse to check orthostatics. So long as patient is not experiencing significant orthostasis, will plan to titrate Geodon over weekend to target residual psychotic symptoms. Continue to monitor on the inpatient unit. Continue other medications and care as ordered. Justification for Cont. Inpt. Med changes anticipated. Risk for decompensation and less restrictive environment. Discharge Planning Possible placement. Case discussed with counselor. Request HC Surrog/Guard Advoc?: No Problem Qualifiers (1) Schizoaffective disorder: Qualified Codes: F25.1 - Schizoaffective disorder, depressive type Davonte Knutson MD May 12, 2017 12:20
[2017-05-12 14:15] VITALS: BP_SYST 103; BP_SYST 113; BP_DIAS 53; BP_DIAS 58; PULSE 86
--- NOTE | 2017-05-12 14:36 | PD.TTN ---
Patient Problems 1. Discharge planning 2. Medication compliance 3. Knowledge deficit 4. Lack of coping skills Progress Toward Goals Provider Present: Dr. Berna Knutson Provider Input: 05/12/17 anticipated discharge for Monday and back on medications Psychiatric Counselors Present: Cierra Brasher LCSW Psych Therapist Input: 05/12/17 patient has a history of non compliance, left Vm with Gricelda at [facility], awaiting [facility] to call back, patietn states she can live with friends or find a room to rent as alternative if an [facility] is not available Group Spec/RT/OT/JOYCE Present: MARIA DEL CARMEN Payton Group Spec/RT/OT/JOYCE Input: 05/12/17 patient attends groups appropriately and participates with encouragement Cierra Brasher LCSW May 12, 2017 14:36
[2017-05-12 18:00] VITALS: BP 123/57; PULSE 90; RESP 16; TEMP 97.4; O2SAT 99
[2017-05-12] MEDS: ZIPRASIDONE HCL 60 MG CAP PO SCH (18:00)
[2017-05-12] MEDS: REMOVE OLD NICOTINE PATCH T-DERMAL SCH (21:00)
[2017-05-12] MEDS: CETIRIZINE HCL 10 MG TAB PO SCH (21:55)
--- NOTE | 2017-05-12 22:50 | RADRPT ---
EXAM DATE/TIME: 05/12/2017 22:29 [facility] COMPARISON: No previous studies available for comparison. INDICATIONS : Pain post fall. MEDICAL HISTORY : Cardiovascular disease. Chronic obstructive pulmonary disease, Seizures.Diabetes. Hepatitis C. Right renal injury. SURGICAL HISTORY : None. ENCOUNTER: Subsequent ACUITY: 1 year PAIN SCORE: 10/10 LOCATION: Sacrum and coccyx. FINDINGS: Two-view examination of the sacrum and coccyx demonstrates no evidence of fracture or malalignment. The sacral ala and foramina appear symmetric and intact. The coccyx appears unremarkable. The preve rtebral soft tissues are within normal limits. CONCLUSION: 1. No acute findings. Luan Aguila MD on May 12, 2017 at 22:46 Board Certified Radiologist. This report was verified electronically.
[2017-05-12] MEDS: LORazepam 0.5 MG TAB PO PRN (23:11)
[2017-05-13] MEDS: ZIPRASIDONE HCL 60 MG CAP PO SCH ×2 (09:00→17:49)
[2017-05-13] MEDS: CETIRIZINE HCL 10 MG TAB PO SCH (09:07)
[2017-05-13] MEDS: FAMOTIDINE 20 MG TAB PO SCH ×2 (09:58→21:00)
[2017-05-13] MEDS: LACOSAMIDE 100 MG TAB PO SCH ×2 (09:58→21:00)
[2017-05-13] MEDS: CITALOPRAM HYDROBROMIDE 40 MG TAB PO SCH (09:59)
[2017-05-13] MEDS: NAPROXEN 250 MG TAB PO SCH ×2 (09:59→21:00)
[2017-05-13] MEDS: FLUTICASONE PROPIONATE 50 MCG/ACT 16 GM NASAL SPRAY EACH NARE SCH (09:59)
[2017-05-13] MEDS: PREGABALIN 25 MG CAP PO SCH ×2 (09:59→21:00)
[2017-05-13] MEDS: NICOTINE 21 MG/24 HR PATCH T-DERMAL SCH (10:00)
[2017-05-13] MEDS: LIDOCAINE HCL 5% PATCH T-DERMAL SCH (10:00)
[2017-05-13] MEDS ORDERED: hydrOXYzine HCL 50 MG TAB PO PRN (13:00)
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
--- NOTE | 2017-05-13 16:20 | HHI.PR ---
Addendum to Inpatient Note Addendum Reason: Additional Documentation Additional Information Xray of the sacrum and coccyx negative for fracture. Patient seen ambulating with minimal limping when told about her result. PT will continue to see patient while in the unit. We will sign off continue with current treatment. Quintin Jessica May 13, 2017 4:20 pm
[2017-05-13 18:34] VITALS: BP 120/56; PULSE 84; RESP 20; TEMP 98.2; O2SAT 99
[2017-05-13] MEDS: REMOVE OLD NICOTINE PATCH T-DERMAL SCH (21:00)
[2017-05-14] MEDS: NICOTINE 21 MG/24 HR PATCH T-DERMAL SCH (09:00)
[2017-05-14] MEDS: NAPROXEN 250 MG TAB PO SCH ×2 (09:00→21:05)
[2017-05-14] MEDS: ZIPRASIDONE HCL 60 MG CAP PO SCH ×2 (09:50→17:00)
[2017-05-14] MEDS: CITALOPRAM HYDROBROMIDE 40 MG TAB PO SCH (09:51)
[2017-05-14] MEDS: LACOSAMIDE 100 MG TAB PO SCH ×2 (09:51→21:00)
[2017-05-14] MEDS: FLUTICASONE PROPIONATE 50 MCG/ACT 16 GM NASAL SPRAY EACH NARE SCH (09:51)
[2017-05-14] MEDS: FAMOTIDINE 20 MG TAB PO SCH ×2 (09:51→21:05)
[2017-05-14] MEDS: PREGABALIN 25 MG CAP PO SCH ×2 (09:51→21:00)
[2017-05-14] MEDS: LIDOCAINE HCL 5% PATCH T-DERMAL SCH (09:52)
--- NOTE | 2017-05-14 12:22 | HHI.PYPN ---
Subjective Remarks Patient was seen and case discussed with nursing. Today, patient is overly formal and tries to present herself well for discharge. Patient is perseverative on discharge. She denies any psychotic symptoms today and minimizes her psychosis before admission. She remains disheveled with a disorganized thought process. Compliance her Geodon has been spotty over the weekend but she says she is committed take it twice a day today Mental Status Examination Appearance: Disheveled Consciousness: Alert Orientation: x4 Motor Activity: Normal gait, Other (no abnormal motor movements noted, no seizure activity noted.) Speech: Unremarkable Language: Adequate Fund of Knowledge: Adequate Attention and Concentration: Adequate Memory: Unremarkable Mood: Appropriate Affect: Blunt Thought Process & Associations: Disorganized Thought Content: Delusional Hallucination Type: Visual Delusion Type: None, Paranoid Suicidal Ideation: No Suicidal Plan: No Suicidal Intention: No Homicidal Ideation: No Homicidal Plan: No Homicidal Intention: No Insight: Poor Judgment: Poor Results Vitals/IOs Vital Signs Date Time Temp Pulse Resp B/P (MAP) Pulse Ox O2 Delivery O2 Flow Rate FiO2 05/13/17 18:34 98.2 84 20 120/56 (77) 99 Intake and Output 05/14/17 05/14/17 05/15/17 08:00 16:00 00:00 Intake Total 240 ml Balance 240 ml Assessment & Plan Problem List: (1) Schizoaffective disorder ICD Codes: F25.9 - Schizoaffective disorder, unspecified Status: Acute (2) Polysubstance abuse ICD Codes: F19.10 - Other psychoactive substance abuse, uncomplicated Assessment & Plan Continue current treatment plan Justification for Cont. Inpt. Patient will decompensate in a less restrictive setting Request HC Surrog/Guard Advoc?: No Problem Qualifiers (1) Schizoaffective disorder: Qualified Codes: F25.1 - Schizoaffective disorder, depressive type Camron Martinez DO May 14, 2017 12:22
[2017-05-14 18:56] VITALS: BP 112/56; PULSE 73; RESP 16; TEMP 97.3; O2SAT 100
[2017-05-14] MEDS: REMOVE OLD NICOTINE PATCH T-DERMAL SCH (21:00)
[2017-05-14] MEDS: CETIRIZINE HCL 10 MG TAB PO SCH (21:05)
[2017-05-15 05:46] VITALS: BP 101/58; PULSE 79; RESP 16; TEMP 97.9; O2SAT 99
[2017-05-15] MEDS ORDERED: NAPR250T4 PO (08:40)
[2017-05-15] MEDS ORDERED: FAMO20TA2 PO (08:40)
[2017-05-15] MEDS ORDERED: CELE40TA PO (08:40)
[2017-05-15] MEDS ORDERED: CETI10 PO (08:40)
[2017-05-15] MEDS ORDERED: LYRI50CA PO (08:40)
[2017-05-15] MEDS ORDERED: GEOD60CA PO (08:40)
[2017-05-15] MEDS ORDERED: LIDO1ADH4 T-DERMAL (08:40)
[2017-05-15] MEDS ORDERED: LACO100 PO (08:40)
--- NOTE | 2017-05-15 08:40 | HHI.DS ---
Psychiatry Discharge Summary Inpatient Psychiatric care?: Yes Advance Directive: No Reason Not Provided: Due to Patient Condition Mental Health AdvanceDirective: No Health Care Proxy: No Admission Admission Date May 09, 2017 at 14:06 Admission Diagnosis: (1) Schizoaffective disorder ICD Code: F25.9 - Schizoaffective disorder, unspecified (2) Polysubstance abuse ICD Code: F19.10 - Other psychoactive substance abuse, uncomplicated Brief History Ms. Villatoro is a 51-year-old female with a reported history of psychotic illness who presented to the emergency department under a Palmer act initiated by her outpatient provider Cholo Kim alleging that the patient has been experiencing command auditory hallucinations to kill herself. Reviewing the electronic medical record, I note that the patient was admitted briefly to the inpatient unit in October of last year. Patient seen and examined with nurse and nurse practitioner. Chart reviewed. Case discussed with nursing staff. On my examination today, the patient reports that she has been falling into a deep depression over the last several weeks. She says that she stopped caring about her self-care and therefore stopped her psychotropic medications about 3 weeks ago. In the setting of this medication nonadherence she has been experiencing audiovisual hallucinations including shadows and "mumbling." She does not presently describe any command auditory hallucinations. She continues to endorse low mood and says "I have given up on God. I don't care anymore." She endorses hopeless feelings. She endorses suicidal ideation with plan to jump in front of a train or perhaps to overdose. She does contract for safety on the inpatient unit. Besides the hallucinations, the patient also describes some ideas of reference and says that she believes that a radio show called Misa is talking about her. No hypomanic or manic symptoms presently. The remainder of the psychiatric ROS is negative. The patient complains of some left hip pain but otherwise has no physical complaints at this time. Tobacco Use In Past 30 Days: 5 or More Cigarettes/Day Alcohol Use: Never Hospital Course Patient was admitted to a locked, inpatient psychiatric unit. A general medical consultation was obtained. Appropriate precautions were in place throughout patient's hospital stay. Patient was seen and examined on the unit by psychiatry and also visited by counselor. Psychotropic medications were adjusted. Patient tolerated medications well without side effects. Patient had improvement of presenting psychiatric symptomatology during the course of her hospital stay. There was no evidence of any suicidality or homicidality on the inpatient unit. The patient remained in good behavioral control. On the day of discharge: Patient seen and examined with nurse. Chart reviewed. Case discussed with nursing staff. On my examination today, the patient is requesting discharge from the inpatient psychiatric unit today. She denies any suicidal or homicidal ideation, intent or plan on direct questioning and contracts for safety. She is in good spirits and I can elicit no depressive or hypomanic/manic symptoms. She is future oriented. She tells me "I got a lot to look forward to. I have some meaning now." She denies any audiovisual hallucinations. No command auditory hallucinations. I can elicit no delusional material. There is no evidence of any impairment in reality construction. She denies side effects from medications. She has no new physical complaints. Suicide and violence risk assessment on day of discharge both suggest lower imminent risk, and the patient's level of function is adequate for outpatient care. The patient does not meet criteria for involuntary psychiatric hospitalization at this time and is requesting discharge from the inpatient psychiatric unit today. I have no basis to retain her on the unit over her objection at this time. I will discharge the patient today with psychiatric follow-up as arranged by counselor. Patient is also to follow-up with primary care. I have counseled the patient to abstain from abuse of substances. I have counseled the patient regarding warning signs for need to return to the psychiatric emergency room as part of the general safety plan. Results Blood Pressure 101 / 58 Vital Signs Date Time Temp Pulse Resp B/P (MAP) Pulse Ox O2 Delivery O2 Flow Rate FiO2 05/15/17 05:46 97.9 79 16 101/58 (72) 99 Laboratory Results Test 05/10/17 05:59 Cholesterol Level 137 MG/DL (120-200) HDL Cholesterol 55.2 MG/DL (40.0-60.0) Hemoglobin A1c 6.0 % (4.3-6.0) LDL Cholesterol 64 MG/DL (0-99) Triglycerides Level 89 MG/DL (42-150) Summary of Procedures None done Imaging Last Impressions Sacrum and Coccyx X-Ray 05/12/17 0000 Signed Impressions: Service Date/Time: Friday, May 12, 2017 22:29 - CONCLUSION: 1. No acute findings. Luan Aguila MD Hip and Pelvis X-Ray 05/10/17 0000 Signed Impressions: Service Date/Time: Wednesday, May 10, 2017 08:44 - CONCLUSION: Negative Teto Parry MD FACR Pending results at discharge: No Medications # of Antipsychotic meds at D/C: 1 Approp Antipsych med options 1 - Minimum of three failed multiple trials of monotherapy. 2 - Documented plan to taper to monotherapy due to previous use of multiple meds OR cross-taper in progress at D/C. 3 - Documentation of augmentation of Clozapine. 4 - Justification other than those listed in allowable values 1-3, document here : Discharge Discharge Date: May 15, 2017 Discharge Diagnosis: (1) Schizoaffective disorder Diagnosis: Principal (stabilized) ICD Code: F25.9 - Schizoaffective disorder, unspecified Status: Acute (2) Polysubstance abuse Diagnosis: Secondary (counseled to quit) ICD Code: F19.10 - Other psychoactive substance abuse, uncomplicated Pt Condition on Discharge: Stable Discharge Disposition: Discharge Home Discharge Instructions Diet Instructions: As Tolerated, No Restrictions Activities you can perform: Weight Bearing as Isaiah Scheduled Appointment: as per counselor's notes New Orders: COMP MET PROF (CMP) - 1 Week New Medications: Cane/Aluminum/Adjustable (Cane/Aluminum/Adjustable) 1 Mis Mis EA .XX DIRECTED, #1 Cetirizine (Cetirizine) 10 Mg Tab 10 MG PO HS for Health for 15 Days, TAB 1 Refill Citalopram (Celexa) 40 Mg Tab 40 MG PO DAILY for Mental Health for 15 Days, #15 TAB 1 Refill Famotidine (Famotidine) 20 Mg Tab 20 MG PO BID for Health for 15 Days, #30 TAB 1 Refill Lacosamide (Vimpat) 100 Mg Tab 200 MG PO BID for Seizure for 15 Days, #60 TAB 1 Refill Lidocaine (Lidoderm) 5 % Adh..patch 1 PATCH T-DERMAL DAILY for Pain Management for 15 Days, #15 PATCH 1 Refill Apply over area of hip pain. Do not apply over non-intact skin. Do not use with heat sources such as heating pad. Use for up to 12 hours/24 hour period. Remove old patch before applying new one. Ziprasidone (Geodon) 60 Mg Cap 80 MG PO BIDPC for Mental Health for 15 Days, CAP 1 Refill Changed Medications: Naproxen (Naproxen) 250 Mg Tab 250 MG PO BID for Health for 15 Days, #30 TAB 1 Refill (Changed from: 60; Refills: 0) Be sure to discuss use of NSAIDs like Naproxen with PCP and discuss discontinuing use as soon as medically appropriate. Continued Medications: Pregabalin (Lyrica) 50 Mg Cap 50 MG PO BID for Health for 15 Days, #30 CAP 1 Refill (This prescription has been renewed) Discontinued Medications: Ziprasidone (Geodon) 80 Mg Cap 80 MG PO HS, #60 CAP 0 Refills Discharge Time <= 30 minutes Mental Status Examination Appearance: Appropriate Consciousness: Alert Orientation: x4 Motor Activity: Normal gait, Other (no motor abnormalities noted. No ictal activity noted. No signs of withdrawal noted.) Speech: Unremarkable Language: Adequate Fund of Knowledge: Adequate Attention and Concentration: Adequate Memory: Unremarkable Mood: Appropriate, Good Affect: Appropriate, Euthymic Thought Process & Associations: Intact, Logical, Linear Thought Content: Appropriate Hallucination Type: None Delusion Type: None Suicidal Ideation: No Suicidal Plan: No Suicidal Intention: No Homicidal Ideation: No Homicidal Plan: No Homicidal Intention: No Insight: Fair Judgment: Adequate (fair) Discharge/Advance Care Plan Health Problems: (1) Schizoaffective disorder (2) Polysubstance abuse Goals to promote your health * To prevent worsening of your condition and complications * To maintain your health at the optimal level Directions to meet your goals Take your medications as prescribed Follow your dietary instruction Follow activity as directed Keep your appointments as scheduled Take your immunizations and boosters as scheduled If your symptoms worsen call your PCP, if no PCP go to Urgent Care Center or Emergency Room For 24/ questions related to your inpatient stay or results of tests pending at discharge, please contact Dr. Davonte Knutson at Smoking is Dangerous to Your Health. Avoid second hand smoking Problem Qualifiers (1) Schizoaffective disorder: Qualified Codes: F25.1 - Schizoaffective disorder, depressive type Davonte Knutson MD May 15, 2017 08:40
[2017-05-15] MEDS: FAMOTIDINE 20 MG TAB PO SCH (09:00)
[2017-05-15] MEDS: FLUTICASONE PROPIONATE 50 MCG/ACT 16 GM NASAL SPRAY EACH NARE SCH (09:00)
[2017-05-15] MEDS: LIDOCAINE HCL 5% PATCH T-DERMAL SCH (09:00)
[2017-05-15] MEDS: NICOTINE 21 MG/24 HR PATCH T-DERMAL SCH (09:00)
[2017-05-15] MEDS: ZIPRASIDONE HCL 60 MG CAP PO SCH (09:00)
[2017-05-15] MEDS: CITALOPRAM HYDROBROMIDE 40 MG TAB PO SCH (09:00)
[2017-05-15] MEDS: NAPROXEN 250 MG TAB PO SCH (09:26)
[2017-05-15] MEDS: PREGABALIN 25 MG CAP PO SCH (09:26)
[2017-05-15] MEDS: LACOSAMIDE 100 MG TAB PO SCH (09:27)
== END 2017-05-15 10:30 | disposition home or self-care (01) | DRG 885 ==
LOC: NEPJ 15:22 → NEDA 05-09 14:06 → H270 05-09 15:43 → H260 05-10 17:58
PROVIDERS: ADMIT Psychiatry & Neurology Psychiatry; ATTEND Psychiatry & Neurology Psychiatry
DX: F25.1 Schizoaffective disorder, depressive type (principal); G40.919 Epilepsy, unspecified, intractable, without status epilepticus; N17.9 Acute kidney failure, unspecified; R45.851 Suicidal ideations; I10 Essential (primary) hypertension; F19.94 Other psychoactive substance use, unspecified with psychoactive substance-induced mood disorder; B19.20 Unspecified viral hepatitis C without hepatic coma; F31.9 Bipolar disorder, unspecified; F41.9 Anxiety disorder, unspecified; J44.9 Chronic obstructive pulmonary disease, unspecified; F17.210 Nicotine dependence, cigarettes, uncomplicated; F12.10 Cannabis abuse, uncomplicated; F14.10 Cocaine abuse, uncomplicated; F16.90 Hallucinogen use, unspecified, uncomplicated; M25.552 Pain in left hip; G89.29 Other chronic pain; R26.9 Unspecified abnormalities of gait and mobility; R42 Dizziness and giddiness; R09.82 Postnasal drip; Z86.73 Personal history of transient ischemic attack (TIA), and cerebral infarction without residual deficits; Z79.899 Other long term (current) drug therapy; Z59.0 Homelessness; Z91.14 Patient's other noncompliance with medication regimen
CPT/HCPCS: 72220; 73502; 80048; 80053; 80061; 80076; 80307; 81001; 83036; 84443; 84702; 85025; 93005; 99285; Q0163

== ENCOUNTER 2017-05-27 05:03 | Emergency (ER) | payer MEDICAID, OTHER ==
[~2017-05-27] VITALS: Ht 160 cm; Wt 50.0 kg
[~2017-05-27 05:03] MED LIST changes: +CANE/ALUMINUM/A1 MIS; +CELE40TA PO; +CETI10 PO; +FAMO20TA2 PO; +GEOD60CA PO; -GEOD80CA PO; +LACO100 PO; +LIDO1ADH4 T-DERMAL; +LYRI50CA PO; +NAPR250T4 PO; -NAPR500T2 PO; -OMEP40CA2 PO; -TRAM50TA PO
[2017-05-27 05:09] VITALS: BP 105/52; PULSE 68; RESP 18; TEMP 98; O2SAT 100
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
[2017-05-27 06:01] LABS: AUTOMATED NEUTROPHIL # 3.2 TH/MM3 (1.8-7.7); BASOPHIL % 0.4 % (0.0-2.0); EOSINOPHIL # 0.2 TH/MM3 (0-0.4); EOSINOPHIL % 2.4 % (0.0-4.0); HEMATOCRIT 38.4 % (35.0-46.0); HEMOGLOBIN 13.5 GM/DL (11.6-15.3); LYMPH % 40.5 % (9.0-44.0); LYMPHOCYTE # 2.9 TH/MM3 (1.0-4.8); MEAN CELL VOLUME 88.1 FL (80.0-100.0); MEAN CORPUSCULAR HEMOGLOBIN 30.9 PG (27.0-34.0); MEAN PLATELET VOLUME 6.6 FL (7.0-11.0); MONO % 11.6 % (0.0-8.0); MONOCYTE # 0.8 TH/MM3 (0-0.9); NEUT % 45.1 % (16.0-70.0); PLATELET COUNT 336 TH/MM3 (150-450); RED BLOOD COUNT 4.36 MIL/MM3 (4.00-5.30); RED CELL DISTRIBUTION WIDTH 13.1 % (11.6-17.2); WHITE BLOOD COUNT 7.1 TH/MM3 (4.0-11.0)
[2017-05-27 06:23] LABS: AST (GOT) 40 U/L (15-37); BICARBONATE 24.3 MEQ/L (21.0-32.0); BLOOD UREA NITROGEN 28 MG/DL (7-18); CALCIUM 9.3 MG/DL (8.5-10.1); CHLORIDE 104 MEQ/L (98-107); CREATININE 1.15 MG/DL (0.50-1.00); GLOMERULAR FILTRATION RATE 49 ML/MIN (>89); GLUCOSE,RANDOM 115 MG/DL (74-106); SODIUM (NA) 138 MEQ/L (136-145)
[2017-05-27 06:34] LABS: ALKALINE PHOSPHATASE 85 U/L (45-117); ALT (GPT) 48 U/L (10-53); TOTAL BILIRUBIN ADULT 0.3 MG/DL (0.2-1.0); TOTAL PROTEIN 7.8 GM/DL (6.4-8.2)
[2017-05-27 13:00] VITALS: BP 144/80; PULSE 65; RESP 15; O2SAT 97
[2017-05-27 16:55] LABS: BILIRUBIN, URINE NEG (NEG); BLOOD, URINE NEG (NEG); GLUCOSE,URINE NEG (NEG); KETONE, URINE TRACE mg/dL (NEG); MUCUS URINE FEW /lpf (OCC); NITRITE,URINE NEG (NEG); SQUAMOUS EPITHELIAL CELL URINE 3 /hpf (0-5); URINE COLOR YELLOW (YELLW/STRAW); URINE LEUKOCYTE ESTERASE LARGE (NEG)
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
== END 2017-05-27 18:12 | disposition home or self-care (01) ==
LOC: NEPD 05:03
DX: F25.9 Schizoaffective disorder, unspecified (principal); M25.552 Pain in left hip; G89.29 Other chronic pain; R45.851 Suicidal ideations; F31.9 Bipolar disorder, unspecified; F41.9 Anxiety disorder, unspecified; J44.9 Chronic obstructive pulmonary disease, unspecified; K74.60 Unspecified cirrhosis of liver; Z86.73 Personal history of transient ischemic attack (TIA), and cerebral infarction without residual deficits
CPT/HCPCS: 80053; 80307; 81001; 84443; 85025; 99283

== ENCOUNTER 2017-05-27 19:01 | Emergency (ER) | payer MEDICAID ==
[~2017-05-27] VITALS: Ht 160 cm; Wt 51.0 kg
[2017-05-27 20:15] VITALS: BP 119/71; PULSE 73; RESP 20; TEMP 96.5; O2SAT 100
--- NOTE | 2017-05-27 21:55 | PD ---
HPI Chief Complaint: Alcohol/Drug Intoxication Time Seen by Provider: 21:50 Travel History International Travel<30 days: No Contact w/Intl Traveler<30days: No Traveled to known affect area: No History of Present Illness HPI Patient is a 51 year old female who was discharged from the ED 2 hours ago who comes back because she would like a ride to detox. She has no new complaints. She says she was just hoping someone would help her get to detox. While she was here previously she was given a lot of information regarding detox and [facility]. History Past Medical Histgory Menopausal: Yes Hx Cancer: No Hx Chemotherapy: No Hx Radiation Therapy: No Social History Alcohol Use: Yes (DAILY ) Tobacco Use: Yes (1 PPD) Allergies-Medications (Allergen,Severity, Reaction): Coded Allergies: acetaminophen (Unverified Allergy, Severe, 05/08/17) hydrocodone (Unverified Allergy, Severe, 05/08/17) Reported Meds & Prescriptions Reported Meds & Active Scripts Active Lidoderm (Lidocaine) 5 % Adh..patch 1 Patch T-DERMAL DAILY 15 Days Apply over area of hip pain. Do not apply over non-intact skin. Do not use with heat sources such as heating pad. Use for up to 12 hours/24 hour period. Remove old patch before applying new one. Famotidine 20 Mg Tab 20 Mg PO BID 15 Days Geodon (Ziprasidone) 60 Mg Cap 80 Mg PO BIDPC 15 Days Celexa (Citalopram Hydrobromide) 40 Mg Tab 40 Mg PO DAILY 15 Days Vimpat (Lacosamide) 100 Mg Tab 200 Mg PO BID 15 Days Cetirizine (Cetirizine HCl) 10 Mg Tab 10 Mg PO HS 15 Days Naproxen 250 Mg Tab 250 Mg PO BID 15 Days Be sure to discuss use of NSAIDs like Naproxen with PCP and discuss discontinuing use as soon as medically appropriate. Lyrica (Pregabalin) 50 Mg Cap 50 Mg PO BID 15 Days Cane/Aluminum/Adjustable (Device) 1 Mis Mis Ea .XX DIRECTED Review of Systems General / Constitutional: No: Fever, Chills HENT: No: Headaches Cardiovascular: No: Chest Pain or Discomfort Respiratory: No: Shortness of Breath Gastrointestinal: No: Nausea, Vomiting Musculoskeletal: No: Myalgias, Edema Skin: No Rash, No Change in Pigmentation Physical Exam Narrative GENERAL: Awake and alert, in no acute distress. SKIN: Focused skin assessment warm/dry. HEAD: Atraumatic. Normocephalic. EYES: Pupils equal and round. No scleral icterus. No injection or drainage. ENT: No nasal bleeding or discharge. Mucous membranes pink and moist. CARDIOVASCULAR: Regular rate and rhythm. No murmur appreciated. RESPIRATORY: No accessory muscle use. Clear to auscultation. Breath sounds equal bilaterally. MUSCULOSKELETAL: No obvious deformities. No clubbing. No cyanosis. No edema. NEUROLOGICAL: Awake and alert. No obvious cranial nerve deficits. Motor grossly within normal limits. Normal speech. Data Data Last Documented VS Vital Signs Date Time Temp Pulse Resp B/P (MAP) Pulse Ox O2 Delivery O2 Flow Rate FiO2 05/27/17 20:15 96.5 73 20 119/71 (87) 100 MDM Medical Screen Exam Complete: Yes Emergency Medical Condition: No Narrative Course A medical screening exam was performed: At the time of evaluation the presenting medical condition was determined not to be of an emergent nature. The patient was given the option of receiving additional care, but declined. Patient was given options for additional community resources from which to obtain care. The Patient Has Been advised to seek medical attention for their presenting complaint. The patient has been advised to return to the ER at any time if an emergent condition develops. Primary Impression: Encounter for medical screening examination Disposition: 01 DISCHARGE HOME Condition: Stable Sherrie Mayes MD May 27, 2017 21:55
== END 2017-05-27 22:00 | disposition left against medical advice (07) ==
LOC: NEPD 19:01
DX: F19.10 Other psychoactive substance abuse, uncomplicated (principal); F17.200 Nicotine dependence, unspecified, uncomplicated; Z79.899 Other long term (current) drug therapy; Z88.6 Allergy status to analgesic agent; Z88.5 Allergy status to narcotic agent
CPT/HCPCS: 99281

== ENCOUNTER 2017-05-27 22:39 | Emergency (ER) | payer MEDICAID, OTHER ==
[~2017-05-27] VITALS: Ht 162.6 cm; Wt 60.0 kg
[2017-05-27 22:46] VITALS: BP 140/77; PULSE 89; RESP 16; TEMP 98.2; O2SAT 95
[2017-05-27 23:03] VITALS: BP 123/70; PULSE 84; RESP 18; TEMP 98.2; O2SAT 100
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
[2017-05-28 03:30] VITALS: BP 156/65; PULSE 99; RESP 17; TEMP 98.6; O2SAT 96
[2017-05-28 06:43] VITALS: BP 119/73; PULSE 92; RESP 18; TEMP 98.6; O2SAT 98
[2017-07-13] MEDS ORDERED: diphenhydrAMINE HCL 50 MG CAP PO PRN (10:15)
[2017-07-13] MEDS ORDERED: hydrOXYzine HCL 50 MG TAB PO PRN (10:15)
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
[2017-07-13] MEDS ORDERED: ESLICARBAZEPINE 400 MG PO SCH (12:00)
[2017-07-13] MEDS ORDERED: LACOSAMIDE 100 MG TAB PO SCH (12:30)
[2017-07-13] MEDS ORDERED: PREGABALIN 25 MG CAP PO SCH (21:00)
[2017-07-14] MEDS ORDERED: PANTOPRAZOLE SOD 40 MG DELAYED RELEASE TAB PO SCH (09:00)
[2017-07-14] MEDS ORDERED: CITALOPRAM HYDROBROMIDE 40 MG TAB PO SCH (09:00)
== END 2017-05-28 14:04 ==
LOC: NEPJ 22:39
DX: F25.9 Schizoaffective disorder, unspecified (principal); F14.10 Cocaine abuse, uncomplicated; F31.9 Bipolar disorder, unspecified; F41.9 Anxiety disorder, unspecified; E78.00 Pure hypercholesterolemia, unspecified; K74.60 Unspecified cirrhosis of liver; J44.9 Chronic obstructive pulmonary disease, unspecified; Z86.73 Personal history of transient ischemic attack (TIA), and cerebral infarction without residual deficits; Z79.899 Other long term (current) drug therapy
CPT/HCPCS: 80307; 99285

== ENCOUNTER 2017-07-12 13:16 | Inpatient (IN) | payer MEDICAID, OTHER ==
[~2017-07-12] VITALS: Ht 160 cm; Wt 51.7 kg
[2017-07-12 13:30] VITALS: BP 101/61; PULSE 94; RESP 16; TEMP 98.1; O2SAT 100
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
[2017-07-12 14:34] LABS: AUTOMATED NEUTROPHIL # 3.1 TH/MM3 (1.8-7.7); BASOPHIL # 0.1 TH/MM3 (0-0.2); EOSINOPHIL # 0.1 TH/MM3 (0-0.4); EOSINOPHIL % 2.1 % (0.0-4.0); HEMATOCRIT 38.4 % (35.0-46.0); HEMOGLOBIN 13.2 GM/DL (11.6-15.3); LYMPH % 38.4 % (9.0-44.0); LYMPHOCYTE # 2.6 TH/MM3 (1.0-4.8); MEAN CELL VOLUME 88.8 FL (80.0-100.0); MEAN CORPUSCULAR HEMOGLOBIN 30.4 PG (27.0-34.0); MEAN CORPUSCULAR HGB CONC 34.3 % (32.0-36.0); MONO % 12.7 % (0.0-8.0); MONOCYTE # 0.9 TH/MM3 (0-0.9); NEUT % 45.8 % (16.0-70.0); PLATELET COUNT 295 TH/MM3 (150-450); RED BLOOD COUNT 4.32 MIL/MM3 (4.00-5.30); RED CELL DISTRIBUTION WIDTH 13.2 % (11.6-17.2); WHITE BLOOD COUNT 6.8 TH/MM3 (4.0-11.0)
[2017-07-12 14:56] LABS: ALBUMIN 3.3 GM/DL (3.4-5.0); AST (GOT) 96 U/L (15-37); BLOOD UREA NITROGEN 24 MG/DL (7-18); CALCIUM 8.5 MG/DL (8.5-10.1); CHLORIDE 103 MEQ/L (98-107); CREATININE 1.02 MG/DL (0.50-1.00); GLOMERULAR FILTRATION RATE 56 ML/MIN (>89); GLUCOSE,RANDOM 129 MG/DL (74-106); SODIUM (NA) 137 MEQ/L (136-145)
[2017-07-12 15:07] LABS: ALKALINE PHOSPHATASE 79 U/L (45-117); ALT (GPT) 73 U/L (10-53); TOTAL BILIRUBIN ADULT 0.3 MG/DL (0.2-1.0); TOTAL PROTEIN 7.2 GM/DL (6.4-8.2)
[2017-07-12 15:08] LABS: ACETAMINOPHEN LESS THAN 2.0 MCG/ML (10.0-30.0)
[2017-07-12] MEDS ORDERED: ALBUAER3 INH (15:28)
[2017-07-12] MEDS ORDERED: BUTA1CAP PO (15:28)
[2017-07-12] MEDS ORDERED: ADVA250A INH (15:28)
[2017-07-12] MEDS ORDERED: CLON1 PO (15:28)
[2017-07-12] MEDS ORDERED: VIMP200T PO (15:28)
[2017-07-12] MEDS ORDERED: ESLI1TAB2 PO (15:28)
[2017-07-12] MEDS ORDERED: OMEP20TA93 PO (15:28)
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
[2017-07-12] MEDS: NICOTINE 21 MG/24 HR PATCH T-DERMAL SCH (18:30)
[2017-07-12] MEDS ORDERED: ALBUTEROL SULFATE 90 MCG/ACT HFA 8 GM INHALER INH PRN (18:30)
[2017-07-12] MEDS ORDERED: MAGNESIUM HYDROXIDE SUSP 30 ML CUP PO PRN (18:30)
[2017-07-12] MEDS ORDERED: ALUMINUM/MAGNESIUM/SIMETH 30 ML CUP PO PRN (18:30)
[2017-07-12 18:40] VITALS: BP 117/55; PULSE 73; RESP 16; TEMP 97.9; O2SAT 97
[2017-07-12 21:00] VITALS: BP 112/88; PULSE 88; RESP 20; TEMP 98.3; O2SAT 96
[2017-07-12] MEDS ORDERED: ESLICARBAZEPINE PO SCH (21:00)
[2017-07-12] MEDS ORDERED: ESLICARBAZEPINE 400 MG PO SCH (21:00)
[2017-07-13] MEDS: clonazePAM 1 MG TAB PO SCH ×3 (00:58→20:40)
[2017-07-13] MEDS: ZIPRASIDONE HCL 80 MG CAP PO SCH ×2 (00:58→21:00)
[2017-07-13] MEDS: CITALOPRAM HYDROBROMIDE 40 MG TAB PO SCH ×2 (00:58→09:05)
[2017-07-13] MEDS: PREGABALIN 25 MG CAP PO SCH ×3 (00:58→20:40)
[2017-07-13 05:11] VITALS: BP 104/62; PULSE 67; RESP 16; TEMP 97.9
[2017-07-13 05:28] VITALS: BP 104/62; PULSE 67; RESP 16; TEMP 97.9; O2SAT 97
[2017-07-13 08:36] LABS: BICARBONATE 28.6 MEQ/L (21.0-32.0); CALCIUM 8.9 MG/DL (8.5-10.1); CHLORIDE 108 MEQ/L (98-107); CHOLESTEROL 134 MG/DL (120-200); CREATININE 0.99 MG/DL (0.50-1.00); GLOMERULAR FILTRATION RATE 58 ML/MIN (>89); GLUCOSE,RANDOM 94 MG/DL (74-106); SODIUM (NA) 141 MEQ/L (136-145)
[2017-07-13 08:42] LABS: BLOOD UREA NITROGEN 22 MG/DL (7-18); CHOLESTEROL/ HDL RATIO 2.14 RATIO; HDL CHOLESTEROL 62.4 MG/DL (40.0-60.0); LDL CHOLESTEROL 60 MG/DL (0-99); TRIGLYCERIDES 58 MG/DL (42-150)
[2017-07-13] MEDS: NICOTINE 21 MG/24 HR PATCH T-DERMAL SCH (09:00)
[2017-07-13] MEDS: REMOVE OLD PATCH T-DERMAL SCH (09:00)
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
[2017-07-13 17:54] VITALS: BP 113/65; PULSE 94; RESP 17; TEMP 98.1; O2SAT 98
[2017-07-13 18:08] LABS: HEMOGLOBIN A1C 5.6 % (4.3-6.0)
[2017-07-13] MEDS: LACOSAMIDE 100 MG TAB PO SCH (20:40)
[2017-07-14 05:19] VITALS: BP 104/61; PULSE 66; RESP 16; TEMP 97.3; O2SAT 94
[2017-07-14] MEDS: clonazePAM 1 MG TAB PO SCH (08:52)
[2017-07-14] MEDS: PREGABALIN 25 MG CAP PO SCH ×2 (08:52→08:53)
[2017-07-14] MEDS: LACOSAMIDE 100 MG TAB PO SCH ×2 (08:52→08:54)
[2017-07-14] MEDS: CITALOPRAM HYDROBROMIDE 40 MG TAB PO SCH ×2 (08:52→08:53)
[2017-07-14] MEDS: NICOTINE 21 MG/24 HR PATCH T-DERMAL SCH (09:00)
[2017-07-14] MEDS: REMOVE OLD PATCH T-DERMAL SCH (09:00)
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
== END 2017-07-14 15:00 | disposition home or self-care (01) | DRG 885 ==
LOC: NEPD 13:16 → NEDA 18:28 → H260 20:24
PROVIDERS: ADMIT Psychiatry & Neurology Psychiatry; ATTEND Psychiatry & Neurology Psychiatry
DX: F25.1 Schizoaffective disorder, depressive type (principal); K74.60 Unspecified cirrhosis of liver; F14.20 Cocaine dependence, uncomplicated; E78.00 Pure hypercholesterolemia, unspecified; J44.9 Chronic obstructive pulmonary disease, unspecified; F31.9 Bipolar disorder, unspecified; F43.10 Post-traumatic stress disorder, unspecified; F12.90 Cannabis use, unspecified, uncomplicated; G40.909 Epilepsy, unspecified, not intractable, without status epilepticus; B18.2 Chronic viral hepatitis C; F17.210 Nicotine dependence, cigarettes, uncomplicated; Z59.0 Homelessness; Z86.73 Personal history of transient ischemic attack (TIA), and cerebral infarction without residual deficits; Z88.5 Allergy status to narcotic agent; Z88.6 Allergy status to analgesic agent; Z91.14 Patient's other noncompliance with medication regimen; Z91.410 Personal history of adult physical and sexual abuse
CPT/HCPCS: 80048; 80053; 80061; 80307; 83036; 84443; 85025; 99285

== ENCOUNTER 2017-07-19 18:03 | Emergency (ER) | payer MEDICAID ==
[~2017-07-19 18:03] MED LIST changes: +ADVA250A INH; +ALBUAER3 INH; +BUTA1CAP PO; -CANE/ALUMINUM/A1 MIS; -CETI10 PO; +CLON1 PO; +ESLI1TAB2 PO; -FAMO20TA2 PO; -GEOD60CA PO; -LACO100 PO; -NAPR250T4 PO; +OMEP20TA93 PO; +VIMP200T PO
[2017-07-19 18:36] VITALS: BP 117/52; PULSE 67; RESP 18; TEMP 98.3; O2SAT 98
[2017-07-19] MEDS ORDERED: GEOD80CA PO ×2 (21:39→22:50)
[2017-07-19 22:30] VITALS: BP 110/62; PULSE 75; RESP 18; O2SAT 96
[2017-07-19] MEDS ORDERED: LACOSAMIDE 100 MG TAB PO ONE (22:45)
[2017-07-19] MEDS ORDERED: PREGABALIN 25 MG CAP PO ONE (22:45)
[2017-07-19] MEDS ORDERED: ZIPRASIDONE HCL 80 MG CAP PO ONE (22:45)
[2017-07-19] MEDS ORDERED: CITALOPRAM HYDROBROMIDE 40 MG TAB PO SCH (22:45)
[2017-07-19] MEDS ORDERED: LYRI50CA PO (22:50)
[2017-07-19] MEDS ORDERED: OMEP20TA93 PO (22:50)
[2017-07-19] MEDS ORDERED: CELE40TA PO (22:50)
[2017-07-19] MEDS ORDERED: ALBUAER3 INH (22:50)
[2017-07-19] MEDS ORDERED: ESLI1TAB2 PO (22:50)
[2017-07-19] MEDS ORDERED: VIMP200T PO (22:50)
[2017-07-19] MEDS ORDERED: ADVA250A INH (22:50)
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
[2017-07-20 03:10] VITALS: BP 116/70; PULSE 70; RESP 16; O2SAT 96
[2017-07-20 07:31] VITALS: BP 125/71; PULSE 55; RESP 16; O2SAT 97
[2017-07-20] MEDS ORDERED: CITALOPRAM HYDROBROMIDE 40 MG TAB PO SCH (10:15)
[2017-07-20] MEDS ORDERED: NAPROXEN 500 MG TAB PO ONE (10:15)
[2017-07-20] MEDS ORDERED: OMEP20TA93 PO (10:19)
[2017-07-20] MEDS ORDERED: NAPR500 PO (10:19)
[2017-07-20] MEDS ORDERED: ADVA250A INH (10:19)
[2017-07-20] MEDS ORDERED: LYRI50CA PO (10:19)
[2017-07-20] MEDS ORDERED: ALBUAER3 INH (10:19)
--- NOTE | 2017-07-20 10:29 | PD ---
Physical Exam Date Seen by Provider: Jul 20, 2017 Time Seen by Provider: 10:20 Narrative 52-year-old female previously brought in with psychiatric symptoms, was medically cleared for psychiatric evaluation, and seen by psychiatric staff. Patient was psychiatrically cleared for discharge with follow-up with Art Merino. Patient was given refills of her pro-air, Advair 50-250, omeprazole, Lyrica, and Naprosyn. 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 Patient to follow-up with Art Merino for her psychiatric issues per psychiatric staff here. Data Data Last Documented VS Vital Signs Date Time Temp Pulse Resp B/P (MAP) Pulse Ox O2 Delivery O2 Flow Rate FiO2 07/20/17 07:31 55 16 125/71 (89) 97 Room Air 07/19/17 18:36 98.3 Orders Orders Pregabalin (Lyrica) (07/19/17 22:45) Citalopram (Celexa) (07/19/17 22:45) Lacosamide (Vimpat) (07/19/17 22:45) Ziprasidone (Geodon) (07/19/17 22:45) Psych Screen (07/19/17 23:21) Diet Regular Basic (07/20/17 Breakfast) Citalopram (Celexa) (07/20/17 10:15) Naproxen (Naprosyn) (07/20/17 10:15) MDM Medical Record Reviewed: Yes Supervised Visit with ALE: Yes Narrative Course 52-year-old female previously brought in with psychiatric symptoms, was medically cleared for psychiatric evaluation, and seen by psychiatric staff. Patient was psychiatrically cleared for discharge with follow-up with Art Merino. Patient was given refills of her pro-air, Advair 50-250, omeprazole, Lyrica, and Naprosyn. 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 Patient to follow-up with Art Merino for her psychiatric issues per psychiatric staff here. Diagnosis Primary Impression: Schizoaffective disorder Qualified Codes: F25.9 - Schizoaffective disorder, unspecified Additional Impression: Seizure Referrals: [facility] Patient Instructions: General Instructions Additional Instruction: Rest. Medications as directed. Follow-up with your primary care and psychiatrist in the next 2-5 days. Return to the ER for emergencies. Med/Other Pt SpecificInfo: Prescription(s) given Scripts Naproxen (Naprosyn) 500 Mg Tab 500 MG PO BID, #60 TAB 0 Refills Prov: Jefry Soares MD 07/20/17 Albuterol 8.5 GM Inh (Proair Hfa 8.5 GM Inh) 90 Mcg/Act Aer 2 PUFF INH Q6H Y for SHORTNESS OF BREATH, #1 INHALER 0 Refills 108 mcg/actuation Prov: Jefry Soares MD 07/20/17 Fluticasone-Salmeterol Inh (Advair Diskus Inh) 250-50 Mcg/Blist Aer 2 PUFF INH BID Y for SHORTNESS OF BREATH, #1 INHALER 0 Refills Rinse mouth after use. Prov: Jefyr Soares MD 07/20/17 Omeprazole (Omeprazole) 20 Mg Tab 40 MG PO DAILY, #30 TAB 0 Refills Prov: Jefry Soares MD 07/20/17 Pregabalin (Lyrica) 50 Mg Cap 50 MG PO BID for Health for 15 Days, #30 CAP 1 Refill Prov: Jefry Soares MD 07/20/17 Ziprasidone (Geodon) 80 Mg Cap 80 MG PO HS, #60 CAP 0 Refills Prov: Jefry Soares MD 07/19/17 Lacosamide (Vimpat) 200 Mg Tab 200 MG PO BID for Control Seizures, #60 TAB 0 Refills Prov: Jefry Soares MD 07/19/17 Eslicarbazepine (Aptiom) 400 Mg Tab 400 MG PO BID for Control Seizures, #30 TAB 0 Refills Prov: Jefry Soares MD 07/19/17 Citalopram (Celexa) 40 Mg Tab 40 MG PO DAILY for Mental Health for 15 Days, #15 TAB 1 Refill Prov: Jefry Soares MD 07/19/17 Disposition: 01 DISCHARGE HOME Condition: Stable Tre Parsons Jul 20, 2017 10:29
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
== END 2017-07-20 10:44 | disposition home or self-care (01) ==
LOC: NEPD 18:03
DX: F25.9 Schizoaffective disorder, unspecified (principal); R56.9 Unspecified convulsions; Z76.0 Encounter for issue of repeat prescription; J45.909 Unspecified asthma, uncomplicated; J44.9 Chronic obstructive pulmonary disease, unspecified; B19.20 Unspecified viral hepatitis C without hepatic coma; Z87.891 Personal history of nicotine dependence; Z76.5 Malingerer [conscious simulation]; Z59.0 Homelessness
CPT/HCPCS: 99283

== ENCOUNTER 2017-12-04 03:03 | Inpatient (IN) ==
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
[2017-12-04 03:55] LABS: Baso # (Auto) 0.1 th/mm3 (0.0-0.2); Baso % (Auto) 1.4 % (0.0-2.0); Eos # (Auto) 0.4 th/mm3 (0.0-0.4); Eos % (Auto) 6.4 % (0.0-4.0); Hematocrit 38.8 % (35.0-46.0); Hemoglobin 13.4 gm/dL (11.6-15.3); Lymph # (Auto) 2.9 th/mm3 (1.0-4.8); Lymph % (Auto) 48.9 % (9.0-44.0); Mean Corpuscular HGB Conc 34.6 % (32.0-36.0); Mean Corpuscular Hemoglobin 30.3 pg (27.0-34.0); Mean Corpuscular Volume 87.5 fL (80.0-100.0); Mean Platelet Volume 7.4 fL (7.0-11.0); Mono # (Auto) 0.5 th/mm3 (0.0-0.9); Mono % (Auto) 8.6 % (0.0-8.0); Neut % (Auto) 34.7 % (16.0-70.0); Platelet Count 259 th/mm3 (150-450); Red Blood Count 4.43 mil/mm3 (4.00-5.30); Red Cell Distribution Width 13.5 % (11.6-17.2); White Blood Count 5.8 th/mm3 (4.0-11.0)
[2017-12-04 04:14] LABS: Alanine Aminotransferase 45 U/L (10-53); Albumin 3.7 g/dL (3.4-5.0); Anion Gap 7 meq/L (5-15); Aspartate Aminotransferase 48 U/L (15-37); Blood Urea Nitrogen 13 mg/dL (7-18); Calcium 8.3 mg/dL (8.5-10.1); Chloride 110 meq/L (98-107); Glomerular Filtration Rate 52 mL/min (>89); Glucose,Random 75 mg/dL (74-106); Potassium 4.7 meq/L (3.5-5.1); Sodium 143 meq/L (136-145)
[2017-12-04 04:17] LABS: Alcohol 4 mg/dL (0-5)
[2017-12-04 04:24] LABS: Alkaline Phosphatase 71 U/L (45-117); Thyroid Stimulating Hormone 0.678 uIU/mL (0.358-3.740); Total Protein 7.2 g/dL (6.4-8.2)
[2017-12-04 12:21] LABS: Amphetamine Screen,Urine Neg (Neg); Barbiturate Screen,Urine Neg (Neg); Cannabinoid Screen,Urine Pos (Neg); Cocaine Screen,Urine Pos (Neg)
[2017-12-04 12:33] LABS: Opiate Screen,Urine Neg (Neg)
[2017-12-04] MEDS: LORazepam 1 MG Tablet PO PRN (14:49)
[2017-12-04] MEDS ORDERED: LORazepam 1 MG Tablet PO PRN (15:01)
[2017-12-04] MEDS ORDERED: Aluminum/Magnesium/Simethacone Susp 30 ML UDC PO PRN (15:01)
[2017-12-05 07:22] LABS: Calcium 8.8 mg/dL (8.5-10.1); Carbon Dioxide 28.1 meq/L (21.0-32.0); Potassium 4.6 meq/L (3.5-5.1)
[2017-12-05 07:23] LABS: Chol/HDL Ratio 2.15 Ratio; HDL Cholesterol 67.4 mg/dL (40.0-60.0)
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
[2017-12-05] MEDS: LORazepam 1 MG Tablet PO PRN (14:10)
[2017-12-05 16:51] LABS: Hemoglobin A1c 5.9 % (4.3-6.0)
== END 2017-12-05 14:30 | disposition home or self-care (01) ==
LOC: NEPD 03:03 → NEDA 14:04 → H270 15:08
PROVIDERS: ADMIT Psychiatry & Neurology Psychiatry; ATTEND Psychiatry & Neurology Psychiatry